=== PATIENT | male | born 1935 | race Caucasian/White ===

== ENCOUNTER 2018-08-11 15:01 | Inpatient (IN) | payer MEDICARE ==
[~2018-08-11] VITALS: Ht 177.8 cm; Wt 76.5 kg
[2018-08-11] VITALS (8 sets, daily range): BP systolic 124–170; BP diastolic 54–80
[2018-08-11] MEDS ORDERED: ONDANSETRON PF 4 MG/2 ML VIAL. IV PRN (15:45)
[2018-08-11] MEDS ORDERED: ACETAMINOPHEN 325 MG TABLET PO PRN (15:45)
[2018-08-11 17:11] LABS: BASO # 0.1 x10^3/uL (0.0-0.2); BASO % 2 % (0-3); EOS # 0.6 x10^3/uL (0.0-0.7); EOS % 9 % (0-3); HEMATOCRIT 35.8 % (39.0-53.0); HEMOGLOBIN 12.1 g/dL (13.0-17.5); LYMPH # 1.2 x10^3/uL (1.0-4.8); LYMPH % 19 % (24-48); MEAN CORPUSCULAR HEMOGLOBIN 28 pg (25-35); MEAN CORPUSCULAR HGB CONC 34 g/dL (31-37); MEAN CORPUSCULAR VOLUME 82 fL (79-100); MONO # 0.7 x10^3/uL (0.0-1.1); MONO % 11 % (0-9); NEUT # 3.8 x10^3uL (1.8-7.7); NEUT % 59 % (31-73); PLATELET COUNT 195 x10^3/uL (140-400); RED BLOOD COUNT 4.37 x10^6/uL (4.30-5.70); RED CELL DISTRIBUTION WIDTH 24.5 % (11.5-14.5); WHITE BLOOD COUNT 6.4 x10^3/uL (4.0-11.0)
[2018-08-11] MEDS: IV NORMAL SALINE 1,000ML 1,000 ML IV SCH (17:18)
[2018-08-11 17:21] LABS: ALBUMIN 3.7 g/dL (3.4-5.0); CALCIUM 8.7 mg/dL (8.5-10.1); CREATININE 1.4 mg/dL (0.7-1.3); GFR 48.6; MAGNESIUM 1.5 mg/dL (1.8-2.4); TOTAL BILIRUBIN 0.4 mg/dL (0.2-1.0); TOTAL PROTEIN 7.3 g/dL (6.4-8.2)
--- NOTE | 2018-08-11 17:33 | EKG ---
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
[2018-08-11] MEDS ORDERED: PANT40TA5 PO (17:44)
[2018-08-11] MEDS ORDERED: POTA20TA82 PO (17:44)
[2018-08-11] MEDS ORDERED: ATORVASTATIN CA80 MG PO (17:44)
[2018-08-11] MEDS ORDERED: METF10007 PO (17:44)
[2018-08-11] MEDS ORDERED: FURO20TA3 PO (17:44)
[2018-08-11] MEDS ORDERED: AMLO5TAB7 PO (17:44)
[2018-08-11] MEDS ORDERED: CARV6.25 PO (17:44)
[2018-08-11] MEDS ORDERED: ERGO500027 PO (17:44)
[2018-08-11] MEDS ORDERED: ASPI-630 PO (17:44)
[2018-08-11] MEDS ORDERED: CILO100T PO (17:44)
[2018-08-11] MEDS ORDERED: FERR325T14 PO (17:44)
[2018-08-11 17:48] LABS: HYPOCHROMIA PRESENT; PLT ESTIMATE ADEQUATE (ADEQUATE)
[2018-08-11 17:49] LABS: ACANTHOCYTES FEW; ANISOCYTOSIS PRESENT; BURR CELLS PRESENT; OVALOCYTES OCC; POIKILOCYTOSIS SLIGHT
--- NOTE | 2018-08-11 19:00 | NUR ---
The patient, ALBERTO MELÉNDEZ, 83 y/o, M admitted by ISABELLA ALCALA MD, was given written information regarding hospital policies, unit procedures and contact persons. Valuables were checked and left in room with pt. Reviewed plan of care with pt and pt's son. Pt agreeable with plan of care. SCDs per protocol. Pt resting comfortably in bed at this time.
[2018-08-11] MEDS ORDERED: MAGNESIUM SULFATE 2GM 50 ML IV ONE (19:15)
[2018-08-11] MEDS: MAGNESIUM SULFATE 1GM 100 ML IV SCH ×2 (20:31→21:23)
[2018-08-11] MEDS ORDERED: amLODIPine BESYLATE 5 MG TABLET PO SCH (21:00)
[2018-08-11] MEDS ORDERED: ATORVASTATIN CALCIUM 20 MG TABLET PO SCH (21:00)
[2018-08-11] MEDS ORDERED: MAGNESIUM OXIDE 400 MG TABLET PO SCH (21:00)
[2018-08-11] MEDS ORDERED: metFORMIN 500 MG TABLET PO SCH (21:00)
[2018-08-11] MEDS: CILOSTAZOL 50 MG TABLET. PO SCH (21:09)
[2018-08-11 22:35] LABS: BACTERIA,URINE 0 /HPF (0-FEW); BILIRUBIN,URINE NEG (NEG); CLARITY,URINE CLEAR; COLOR,URINE YELLOW; GLUCOSE,URINE NEG (NEG); NITRITE,URINE NEG (NEG); RBC,URINE 0 /HPF (0-2); UROBILINOGEN,URINE 0.2 mg/dL (0.2 mg/dL); WBC,URINE RARE /HPF (0-4)
[2018-08-12] VITALS (14 sets, daily range): BP systolic 121–173; BP diastolic 50–86
[2018-08-12] MEDS: IV NORMAL SALINE 1,000ML 1,000 ML IV SCH (03:18)
[2018-08-12 06:25] LABS: BASO # 0.1 x10^3/uL (0.0-0.2); BASO % 1 % (0-3); EOS # 0.5 x10^3/uL (0.0-0.7); EOS % 6 % (0-3); HEMATOCRIT 35.5 % (39.0-53.0); HEMOGLOBIN 11.8 g/dL (13.0-17.5); LYMPH # 1.2 x10^3/uL (1.0-4.8); LYMPH % 15 % (24-48); MEAN CORPUSCULAR HEMOGLOBIN 27 pg (25-35); MEAN CORPUSCULAR HGB CONC 33 g/dL (31-37); MEAN CORPUSCULAR VOLUME 82 fL (79-100); MONO # 0.7 x10^3/uL (0.0-1.1); MONO % 9 % (0-9); NEUT # 5.4 x10^3uL (1.8-7.7); NEUT % 68 % (31-73); PLATELET COUNT 203 x10^3/uL (140-400); RED CELL DISTRIBUTION WIDTH 24.8 % (11.5-14.5)
[2018-08-12 06:31] LABS: CALCIUM 8.3 mg/dL (8.5-10.1); CREATININE 1.3 mg/dL (0.7-1.3); POTASSIUM 3.4 mmol/L (3.5-5.1)
[2018-08-12] MEDS ORDERED: PANTOPRAZOLE 40 MG TABLET. PO SCH (07:30)
[2018-08-12] MEDS ORDERED: ELECTROLYTE (NON-ICU) PROTOCOL MC PRN (07:45)
[2018-08-12] MEDS ORDERED: CARVEDILOL 6.25 MG TABLET PO SCH (08:00)
[2018-08-12] MEDS ORDERED: ASPIRIN 81 MG TAB.CHEW PO SCH (08:00)
[2018-08-12] MEDS ORDERED: metFORMIN 500 MG TABLET PO SCH (08:00)
[2018-08-12] MEDS ORDERED: FERROUS SULFATE 325 MG TABLET. PO SCH (09:00)
[2018-08-12] MEDS ORDERED: MAGNESIUM CHLORIDE ER 64 MG TABLET.ER PO SCH (09:00)
[2018-08-12] MEDS ORDERED: POTASSIUM CHLORIDE 20 MEQ TABLET.ER. PO SCH (09:00)
[2018-08-12] MEDS ORDERED: FUROSEMIDE 20 MG TABLET PO SCH (09:00)
--- NOTE | 2018-08-12 09:07 | PDOC2 ---
CONSULT Date of Admission DATE: 08/12/18 TIME: 09:02 Reason for Consult: cp History of Present Illness Mr Shaw is an 83 year old male who normally follows with Dr Hassan for a history of coronary artery disease s/p CABG x5, CHF and Peripheral arterial disease. He was at follow up with PCP for lab work and was noted to have an irregular heart rhythm. EKG done in office apparently revealed paroxysmal atrial tachycardia so he was advised to come to hospital for admission and evaluation. He denies any symptoms of chest discomfort, dyspnea, palpitations, lightheadedness or syncope. He reports claudication with walking about 150 yards which resolves with 2-3 minutes of rest. He denies any congestive symptoms including orthopnea or PND. He does report swelling in his right lower extremity more than left that is chronic since his vascular surgery. He reports echocardiogram and stress testing within the last 1 year at . Cardiovascular: CAD, HTN, hyperipidemia, Other (PAD s/p surgical intervention ( prob fem pop bypass by history) right leg) Pulmonary: Pneumonia GI: GERD Heme/Onc: Iron deficiency Anemia Renal/: Benign prostatic enlarg. Endocrine: Diabetes Past Surgical History: CABG, Cataract Removal, Other (right toe amputation x 2 , vascular surgery (prob fem-pop) right lower extremity) Family History non contributory due to age Social History non smoker, no significant ETOH, no illicit drugs Current Medications Current Medications Sodium Chloride 1,000 ml @ 100 mls/hr Q10H IV Last administered on 08/12/18at 03:18; Start 08/11/18 at 15:43 Acetaminophen (Tylenol) 650 mg PRN Q6HRS PRN PO Headaches, Temp > 101.5F; Start 08/11/18 at 15:45 Ondansetron HCl (Zofran) 4 mg PRN Q8HRS PRN IV NAUSEA/VOMITING; Start 08/11/18 at 15:45 Ferrous Sulfate (Feosol) 325 mg DAILY PO ; Start 08/12/18 at 09:00 Furosemide (Lasix) 20 mg DAILY PO ; Start 08/12/18 at 09:00 Amlodipine Besylate (Norvasc) 5 mg QHS PO Last administered on 08/11/18at 21:09 ; Start 08/11/18 at 21:00 Aspirin (Children'S Aspirin) 81 mg DAILYWBKFT PO Last administered on at 07:54; Start 08/12/18 at 08:00 Atorvastatin Calcium (Lipitor) 80 mg QHS PO Last administered on 08/11/18at 21: 08; Start 08/11/18 at 21:00 Carvedilol (Coreg) 6.25 mg BIDWMEALS PO Last administered on 08/12/18at 07:54; Start 08/12/18 at 08:00 Cilostazol (Pletal) 100 mg BID PO Last administered on 08/11/18at 21:09; Start 08/11/18 at 21:00 Vitamin D (Vitamin D3) 50,000 unit WEEKLY PO ; Start 08/18/18 at 09:00 Metformin HCl (Glucophage) 1,000 mg BIDWMEALS PO ; Start 08/12/18 at 08:00; Stop 08/12/18 at 08:00; Status DC Pantoprazole Sodium (Protonix) 40 mg DAILYAC PO Last administered on 08/12/18at 07:54; Start 08/12/18 at 07:30 Potassium Chloride (Klor-Con) 20 meq QODAY PO ; Start 08/12/18 at 09:00 Magnesium Oxide (Magnesium Oxide) 400 mg BID PO ; Start 08/11/18 at 21:00; Stop 08/11/18 at 21:00; Status DC Magnesium Sulfate 50 ml @ 25 mls/hr 1X ONCE IV ; Start 08/11/18 at 19:15; Stop 08/11/18 at 19:17; Status DC Magnesium Sulfate 100 ml @ 100 mls/hr Q1HR IV Last administered on 08/11/18at 21:23; Start 08/11/18 at 20:00; Stop 08/11/18 at 21:59; Status DC Metformin HCl (Glucophage) 1,000 mg QHS PO Last administered on 08/11/18at 21:08 ; Start 08/11/18 at 21:00 Magnesium Chloride (Mag Delay) 64 mg DAILY PO ; Start 08/12/18 at 09:00 Info (Non-Icu Electrolyte Protocol) 1 ea CONT PRN PRN MC PER PROTOCOL; Start at 07:45 Active Scripts Active Reported Potassium Chloride 20 Meq Tablet.er 20 Meq PO QODAY Pantoprazole Sodium 40 Mg Tablet.dr 0.5 Tab PO DAILY Metformin Hcl 1,000 Mg Tablet 1 Tab PO QHS Coreg (Carvedilol) 6.25 Mg Tablet 1 Tab PO BID Furosemide 20 Mg Tablet 1 Tab PO DAILY Cilostazol 100 Mg Tablet 1 Tab PO BID Vitamin D2 (Ergocalciferol (Vitamin D2)) 50,000 Unit Capsule 1 Cap PO QMTH Atorvastatin Calcium 80 Mg Tablet 1 Tab PO DAILY Ferrous Sulfate 325 Mg Tablet 1 Tab PO DAILY Amlodipine Besylate 5 Mg Tablet 1 Tab PO HS Aspirin 81 Mg Tab.chew 81 Mg PO DAILY Allergies: Coded Allergies: Sulfa (Sulfonamide Antibiotics) (Verified Allergy, Unknown, 08/11/18) According to pt neomycin (Verified Allergy, Unknown, 08/11/18) According to pt Review of System as per HPI or negative General: Alert, Oriented X3, Cooperative, No acute distress HEENT: Atraumatic, EOMI, Mucous membr. moist/pink, Other (Right carotid bruit) Lungs: Clear to auscultation, Normal air movement Heart: Regular rate, Normal S1, Normal S2, Other (no gallops, clicks or rubs) Extremities: No cyanosis, Other (1+ RLE edema, trace LLE edema, palpable pulses ) Skin: No significant lesion Neuro: Normal speech, Strength at 5/5 X4 ext Psych/Mental Status: Mental status NL, Mood NL VITALS Vital Signs Date Time Temp Pulse Resp B/P (MAP) Pulse Ox O2 Delivery O2 Flow Rate FiO2 08/12/18 08:18 Room Air 08/12/18 07:54 91 155/71 08/12/18 05:45 20 08/12/18 05:01 97.4 93 Labs Laboratory Tests Test 08/11/18 16:15 08/11/18 17:02 08/11/18 19:39 08/11/18 21:13 Nasal Screen MRSA (PCR) Negative (Negative) White Blood Count 6.4 x10^3/uL (4.0-11.0) Red Blood Count 4.37 x10^6/uL (4.30-5.70) Hemoglobin 12.1 g/dL (13.0-17.5) Hematocrit 35.8 % (39.0-53.0) Mean Corpuscular Volume 82 fL (79-100) Mean Corpuscular Hemoglobin 28 pg (25-35) Mean Corpuscular Hemoglobin Concent 34 g/dL (31-37) Red Cell Distribution Width 24.5 % (11.5-14.5) Platelet Count 195 x10^3/uL (140-400) Neutrophils (%) (Auto) 59 % (31-73) Lymphocytes (%) (Auto) 19 % (24-48) Monocytes (%) (Auto) 11 % (0-9) Eosinophils (%) (Auto) 9 % (0-3) Basophils (%) (Auto) 2 % (0-3) Neutrophils # (Auto) 3.8 x10^3uL (1.8-7.7) Lymphocytes # (Auto) 1.2 x10^3/uL (1.0-4.8) Monocytes # (Auto) 0.7 x10^3/uL (0.0-1.1) Eosinophils # (Auto) 0.6 x10^3/uL (0.0-0.7) Basophils # (Auto) 0.1 x10^3/uL (0.0-0.2) Platelet Estimate Adequate (ADEQUATE) Hypochromasia Present Poikilocytosis Slight Anisocytosis Present Ovalocytes Occ Cme Cells Present Crenated Cell Present Acanthocytes Few Sodium Level 140 mmol/L (136-145) Potassium Level 4.0 mmol/L (3.5-5.1) Chloride Level 103 mmol/L (98-107) Carbon Dioxide Level 29 mmol/L (21-32) Anion Gap 8 (6-14) Blood Urea Nitrogen 20 mg/dL (8-26) Creatinine 1.4 mg/dL (0.7-1.3) Estimated GFR (Cockcroft-Gault) 48.6 BUN/Creatinine Ratio 14 (6-20) Glucose Level 149 mg/dL (70-99) Calcium Level 8.7 mg/dL (8.5-10.1) Magnesium Level 1.5 mg/dL (1.8-2.4) Total Bilirubin 0.4 mg/dL (0.2-1.0) Aspartate Amino Transf (AST/SGOT) 17 U/L (15-37) Alanine Aminotransferase (ALT/SGPT) 22 U/L (16-63) Alkaline Phosphatase 63 U/L (46-116) Creatine Kinase 62 U/L (39-308) Troponin I Quantitative < 0.017 ng/mL (0-0.055) Total Protein 7.3 g/dL (6.4-8.2) Albumin 3.7 g/dL (3.4-5.0) Albumin/Globulin Ratio 1.0 (1.0-1.7) Glucose (Fingerstick) 147 mg/dL (70-99) Urine Collection Type Unknown Urine Color Yellow Urine Clarity Clear Urine pH 6.5 Urine Specific [place] 1.015 Urine Protein Trace (NEG-TRACE) Urine Glucose (UA) Neg mg/dL (NEG) Urine Ketones (Stick) Neg mg/dL (NEG) Urine Blood Trace (NEG) Urine Nitrite Neg (NEG) Urine Bilirubin Neg (NEG) Urine Urobilinogen Dipstick 0.2 mg/dL (0.2 mg/dL) Urine Leukocyte Esterase Neg (NEG) Urine RBC 0 /HPF (0-2) Urine WBC Rare /HPF (0-4) Urine Squamous Epithelial Cells None /LPF Urine Bacteria 0 /HPF (0-FEW) Test 08/11/18 21:50 08/12/18 05:34 Creatine Kinase 60 U/L (39-308) 50 U/L (39-308) Troponin I Quantitative < 0.017 ng/mL (0-0.055) < 0.017 ng/mL (0-0.055) White Blood Count 8.0 x10^3/uL (4.0-11.0) Red Blood Count 4.30 x10^6/uL (4.30-5.70) Hemoglobin 11.8 g/dL (13.0-17.5) Hematocrit 35.5 % (39.0-53.0) Mean Corpuscular Volume 82 fL (79-100) Mean Corpuscular Hemoglobin 27 pg (25-35) Mean Corpuscular Hemoglobin Concent 33 g/dL (31-37) Red Cell Distribution Width 24.8 % (11.5-14.5) Platelet Count 203 x10^3/uL (140-400) Neutrophils (%) (Auto) 68 % (31-73) Lymphocytes (%) (Auto) 15 % (24-48) Monocytes (%) (Auto) 9 % (0-9) Eosinophils (%) (Auto) 6 % (0-3) Basophils (%) (Auto) 1 % (0-3) Neutrophils # (Auto) 5.4 x10^3uL (1.8-7.7) Lymphocytes # (Auto) 1.2 x10^3/uL (1.0-4.8) Monocytes # (Auto) 0.7 x10^3/uL (0.0-1.1) Eosinophils # (Auto) 0.5 x10^3/uL (0.0-0.7) Basophils # (Auto) 0.1 x10^3/uL (0.0-0.2) Sodium Level 141 mmol/L (136-145) Potassium Level 3.4 mmol/L (3.5-5.1) Chloride Level 105 mmol/L (98-107) Carbon Dioxide Level 26 mmol/L (21-32) Anion Gap 10 (6-14) Blood Urea Nitrogen 15 mg/dL (8-26) Creatinine 1.3 mg/dL (0.7-1.3) Estimated GFR (Cockcroft-Gault) 53.0 Glucose Level 120 mg/dL (70-99) Calcium Level 8.3 mg/dL (8.5-10.1) Magnesium Level 1.6 mg/dL (1.8-2.4) Images EKG sinus rhythm, RBBB, 1degree av block, non specific st/t abn, PVC Assessment/Plan 1. paroxysmal atrial tachycardia - no significant arrhythmias since admission. Occasional premature ventricular contractions. Consider outpatient event monitoring for burden. 2. CAD CABG status - angina free. recent MPI with fixed defects and no reversibility. Continue medical mgmt and RF reduction. 3. presumed chronic systolic heart failure with reported EF 35% - well compensated, check echo for LV function and adjust medications accordingly. 4. hypertension - fair control on current therapy. increase coreg and re- evaluate outpatient. 5. hyperlipidemia - continue current therapy and check lipids. 6. hyponatremia/hypomagnesemia - replace and recheck. 7. claudication with known PAD s/p surgical intervention - outpatient follow up and continue pletal. 8. carotid bruits - check duplex. As he is clinically well compensated and without significant complaint, would be ok for discharge from CV perspective if no significant abnormalities on echo or continued telemetry and follow up outpatient. YUE NUÑEZ APRN Aug 12, 2018 09:06
[2018-08-12] MEDS: CILOSTAZOL 50 MG TABLET. PO SCH (09:45)
--- NOTE | 2018-08-12 14:10 | PN ---
DATE: 08/12/2018 SUBJECTIVE: The patient is an 83-year-old gentleman who came in with runs of argelia bhatia in the office. The patient was admitted to the hospital for further evaluation. Cardiac enzymes negative, but his potassium and magnesium levels were on the low side. Consulted Cardiology, there being monitored accordingly. We will await further consultation. Also having some loose stools for some time now, may be better than a couple of weeks. Stool cultures pending. OBJECTIVE: VITAL SIGNS: Blood pressure 155/70, respiration 18, pulse 96, afebrile. GENERAL: The patient is alert and oriented. LUNGS: Clear. CARDIOVASCULAR: Regular sinus rhythm. Numerous dropped beats and a possible S3. PLAN: The patient will otherwise continued to be monitored carefully, make further evaluation on him as indicated. We will make further assessment per those results. ISABELLA ALCALA MD DR: JUSTIN/yasmany JOB#: [id number] / [id number]
--- NOTE | 2018-08-12 16:11 | CARD ---
MR#: [id number] Date of Study: 08/12/2018 Ordering Physician: YUE NUÑEZ, Referring Physician: ISABELLA ALCALA, Tech: MONET Botello APPROVED REPORT EXAM: Two-dimensional and M-mode echocardiogram with Doppler and color Doppler. Other Information Quality : AverageHR: 79bpm INDICATION LV Function:Systolic 2D DIMENSIONS RVDd3.5 (2.9-3.5cm)Left Atrium(2D)3.9 (1.6-4.0cm) IVSd1.2 (0.7-1.1cm)Aortic Root(2D)3.3 (2.0-3.7cm) LVDd4.7 (3.9-5.9cm)LVOT Diameter2.2 (1.8-2.4cm) PWd1.2 (0.7-1.1cm)LVDs3.8 (2.5-4.0cm) FS (%) 20.4 %SV42.9 ml Aortic Valve AoV Peak Niall.203.4cm/sAoV VTI39.5cm AO Peak GR.16.5mmHgLVOT Peak Niall.147.7cm/s LVOT VTI 27.90cmAO Mean GR.10mmHg CHAI (VMAX)2.66vl4VJO (VTI)2.57cm2 Mitral Valve MV E Jsdmogax830.8cm/sMV DECEL ZZTL863sd MV A Vldnzufu239.3cm/sE/A Ratio0.7 Pulmonary Valve PV Peak Lynvxmra398.4cm/sPV Peak Grad.10mmHg Tricuspid Valve TR P. Avqfeiwj608za/sRAP NAGVUHJA5xmNz TR Peak Gr.1vnNhDNNF55msHq Pulmonary Vein S1 Zzfemmsq77.2cm/sD2 Wcohspcg44.2cm/s LEFT VENTRICLE The left ventricle is normal size. There is mild concentric left ventricular hypertrophy. The left ve ntricle systolic function is normal. The Ejection Fraction is 50-55%. There is normal LV segmental wa ll motion. Transmitral Doppler flow pattern is Grade I-abnormal relaxation pattern. RIGHT VENTRICLE The right ventricle is normal size. The right ventricular systolic function is normal. ATRIA The left atrium size is normal. The right atrium size is normal. The interatrial septum is intact wit h no evidence for an atrial septal defect or patent foramen ovale as noted on 2-D or Doppler imaging. AORTIC VALVE The aortic valve is mildly thickened but opens well. Doppler and Color Flow revealed no significant a ortic regurgitation. There is no significant aortic valvular stenosis. There is no aortic valvular ve getation. MITRAL VALVE The mitral valve is mildly thickened. There is no evidence of mitral valve prolapse. There is no mitr al valve stenosis. Doppler and Color-flow revealed trace mitral regurgitation. TRICUSPID VALVE The tricuspid valve leaflets are thickened , but open well. Doppler and Color Flow revealed trace tri cuspid regurgitation. There is no tricuspid valve prolapse or vegetation. There is no tricuspid valve stenosis. PULMONIC VALVE The pulmonic valve is not well visualized. Doppler and Color Flow revealed no pulmonic valvular regur gitation. There is no pulmonic valvular stenosis. GREAT VESSELS The aortic root is normal in size. The IVC is dilated and collapses >50% with inspiration. PERICARDIAL EFFUSION There is no pleural effusion. There is no evidence of significant pericardial effusion. Critical Notification Critical Value: No <Conclusion> The left ventricle systolic function is normal. The Ejection Fraction is 50-55%. There is normal LV segmental wall motion. Transmitral Doppler flow pattern is Grade I-abnormal relaxation pattern. Trace mitral regurgitation. Trace tricuspid regurgitation. There is no evidence of significant pericardial effusion. Signed by : Jacinto Noel, Electronically Approved : 08/12/2018 16:10:07
[2018-08-12] MEDS ORDERED: CARVEDILOL 12.5 MG TABLET PO SCH (17:00)
[2018-08-12] MEDS ORDERED: MAGN64TA6 PO (17:05)
[2018-08-12] MEDS ORDERED: CARV6.25 PO (17:05)
[2018-08-18] MEDS ORDERED: CHOLECALCIFEROL (VITAMIN D3) 50,000 UNIT CAPSULE PO SCH (09:00)
--- NOTE | 2018-08-19 21:18 | DS ---
DATE OF DISCHARGE: 08/12/2018 HOSPITAL COURSE: An 83-year-old gentleman came in with chest pain as well as bigeminy, trigeminy. The patient's cardiac enzymes were negative, but his potassium and magnesium levels were low. The patient was consulted with Cardiology and ____ did an echocardiogram on him and his ejection fraction is between 50% and 60%, otherwise his cardiac enzymes were negative, slightly anemic at 11.8 and 35. Otherwise, the patient made good progress but his magnesium levels were elevated and PVCs deteriorated and he will be ready for discharge here soon. Nuclear evaluation on him as indicated. See MRAD. Decreased activity. IMPRESSION: Ventricular arrhythmia, hypomagnesemia, hypokalemia, anemia of unknown etiology. PLAN: As above. ISABELLA ALCALA MD DR: JUSTIN/yasmany JOB#: [id number] / [id number]
== END 2018-08-12 17:41 | disposition home or self-care (01) | DRG 309 ==
LOC: ICU 15:22
PROVIDERS: ADMIT Family Medicine; ATTEND Family Medicine
DX: I47.1 Supraventricular tachycardia (principal); E87.1 Hypo-osmolality and hyponatremia; I50.22 Chronic systolic (congestive) heart failure; E11.51 Type 2 diabetes mellitus with diabetic peripheral angiopathy without gangrene; Z66 Do not resuscitate; E78.5 Hyperlipidemia, unspecified; E83.42 Hypomagnesemia; I11.0 Hypertensive heart disease with heart failure; I25.10 Atherosclerotic heart disease of native coronary artery without angina pectoris; K21.9 Gastro-esophageal reflux disease without esophagitis; R09.89 Other specified symptoms and signs involving the circulatory and respiratory systems; N40.0 Benign prostatic hyperplasia without lower urinary tract symptoms; I49.3 Ventricular premature depolarization; Z87.01 Personal history of pneumonia (recurrent); Z95.1 Presence of aortocoronary bypass graft; Z98.49 Cataract extraction status, unspecified eye; Z89.421 Acquired absence of other right toe(s); Z79.82 Long term (current) use of aspirin; Z79.84 Long term (current) use of oral hypoglycemic drugs; Z88.2 Allergy status to sulfonamides; Z88.8 Allergy status to other drugs, medicaments and biological substances; E87.6 Hypokalemia
CPT/HCPCS: 36415; 80048; 80053; 81001; 82550; 82947; 83735; 84484; 85025; 87086; 87641; 93005; 93306; J3475; J7030

== ENCOUNTER → 2018-08-13 | Outpatient (CLI) | payer MEDICARE ==
[2018-08-12 16:00] VITALS: BP 172/86
[~2018-08-13] MED LIST: AMLO5TAB7 PO; ASPI-630 PO; ATORVASTATIN CA80 MG PO; CARV6.25 PO; CILO100T PO; ERGO500027 PO; FERR325T14 PO; FURO20TA3 PO; MAGN64TA6 PO; METF10007 PO; PANT40TA5 PO; POTA20TA82 PO
--- NOTE | 2018-08-13 09:04 | RAD ---
Examination: CT of the abdomen pelvis without contrast HISTORY: History of abnormal bowel sounds, diarrhea COMPARISON: None available TECHNIQUE: Axial CT images of the abdomen pelvis were performed without contrast. Coronal and sagittal reformats are performed Exposure: One or more of the following individualized dose reduction techniques were utilized for this examination: 1. Automated exposure control 2. Adjustment of the mA and/or kV according to patient size 3. Use of iterative reconstruction technique FINDINGS: Emphysematous changes identified in the bibasilar lungs. No evidence of free air identified in the abdomen. The evaluation of the solid organs is limited due to lack of IV contrast. Evaluation of bowel is limited due to lack of oral contrast.The visualized noncontrasted liver, spleen, adrenals grossly appears unremarkable. The gallbladder is mildly distended. The stomach is mildly distended. The visualized pancreas grossly appears unremarkable The small bowel is nondilated. The appendix is normal. Feces and gas noted in the colon. Mild distended urinary bladder. Mild thickened appearance of the urinary bladder wall. No evidence of intrarenal collecting system calculi or hydronephrosis. Moderate aortic atherosclerosis. Moderate to severe degenerative changes lumbar spine. IMPRESSION: 1. Mild thickened appearance of the wall of the urinary bladder, nonspecific. Underlying mucosal pathology is not completely excluded. Otherwise no acute intra-abdominal findings. 2. Mild distended gallbladder. Electronically signed by: Harpreet Amin MD (08/13/2018 9:00 AM) [id number]
== END | disposition home or self-care (01) ==
LOC: CT 08:21
PROVIDERS: ATTEND Family Medicine
DX: K82.8 Other specified diseases of gallbladder (principal); I70.0 Atherosclerosis of aorta; N32.89 Other specified disorders of bladder; I11.0 Hypertensive heart disease with heart failure; I50.22 Chronic systolic (congestive) heart failure; E11.9 Type 2 diabetes mellitus without complications; E78.5 Hyperlipidemia, unspecified; K21.9 Gastro-esophageal reflux disease without esophagitis; I25.10 Atherosclerotic heart disease of native coronary artery without angina pectoris; Z95.1 Presence of aortocoronary bypass graft; Z89.421 Acquired absence of other right toe(s); Z88.2 Allergy status to sulfonamides; Z88.8 Allergy status to other drugs, medicaments and biological substances
CPT/HCPCS: 74176

== ENCOUNTER → 2018-08-25 | Outpatient (CLI) | payer MEDICARE ==
[2018-08-12 16:00] VITALS: BP 172/86
--- NOTE | 2018-08-25 12:32 | RAD ---
Right upper quadrant abdominal ultrasound History: Distended gallbladder on recent CT. Comparison: CT abdomen pelvis August 13, 2018. Procedure: Transabdominal ultrasound images are obtained. Findings: Visualized pancreas is unremarkable. Liver is mildly increased in echogenicity. No focal hepatic masses are identified. Right lobe of the liver measures 17.6 cm. Gallbladder has an unremarkable appearance. Common bile duct measures normally at 6 mm in diameter. Right kidney measures 10.6 cm in length. Right kidney is without evidence of obstruction or stone Visualized portions of the IVC have normal caliber. Impression: 1. Echogenic liver, compatible with fatty liver disease. 2. No evidence gallbladder pathology. Gallbladder Electronically signed by: Aba Urrutia MD (08/25/2018 12:29 PM) [facility]
== END | disposition home or self-care (01) ==
LOC: US 08:44
PROVIDERS: ATTEND Family Medicine
DX: K82.8 Other specified diseases of gallbladder (principal); I11.0 Hypertensive heart disease with heart failure; I50.22 Chronic systolic (congestive) heart failure; E78.5 Hyperlipidemia, unspecified; E87.6 Hypokalemia; I25.10 Atherosclerotic heart disease of native coronary artery without angina pectoris; K21.9 Gastro-esophageal reflux disease without esophagitis; E11.9 Type 2 diabetes mellitus without complications; Z89.421 Acquired absence of other right toe(s); Z88.2 Allergy status to sulfonamides; Z88.8 Allergy status to other drugs, medicaments and biological substances
CPT/HCPCS: 76705

== ENCOUNTER 2020-01-21 12:26 | Inpatient (IN) | payer MEDICARE ==
[~2020-01-21] VITALS: Ht 177.8 cm; Wt 86.8 kg
[~2020-01-21 12:26] MED LIST changes: +AMLO5TAB10 PO; -AMLO5TAB7 PO; +POTA20TA4 PO; -POTA20TA82 PO
[2020-01-21 13:09] VITALS: BP 183/89
[2020-01-21 13:33] LABS: BASO # 0.1 x10^3/uL (0.0-0.2); BASO % 1 % (0-3); EOS # 0.8 x10^3/uL (0.0-0.7); EOS % 11 % (0-3); HEMOGLOBIN 13.5 g/dL (13.0-17.5); LYMPH # 1.4 x10^3/uL (1.0-4.8); LYMPH % 20 % (24-48); MEAN CORPUSCULAR HEMOGLOBIN 32 pg (25-35); MEAN CORPUSCULAR HGB CONC 34 g/dL (31-37); MEAN CORPUSCULAR VOLUME 94 fL (79-100); MONO # 0.7 x10^3/uL (0.0-1.1); MONO % 10 % (0-9); NEUT # 4.1 x10^3uL (1.8-7.7); NEUT % 59 % (31-73); PLATELET COUNT 255 x10^3/uL (140-400); RED BLOOD COUNT 4.24 x10^6/uL (4.30-5.70); RED CELL DISTRIBUTION WIDTH 15.7 % (11.5-14.5)
[2020-01-21] MEDS ORDERED: DICL100G24 TP (13:47)
[2020-01-21] MEDS ORDERED: FURO40TA4 PO (13:47)
[2020-01-21] MEDS ORDERED: APIX5TAB3 PO (13:47)
[2020-01-21] MEDS ORDERED: GLIP5TAB10 PO (13:47)
[2020-01-21] MEDS ORDERED: TRIA15CR50 TP (13:47)
[2020-01-21] MEDS ORDERED: LIPA1CAP PO (13:47)
[2020-01-21 13:53] LABS: ALBUMIN 3.9 g/dL (3.4-5.0); CALCIUM 8.5 mg/dL (8.5-10.1); CREATININE 1.5 mg/dL (0.7-1.3); GFR 44.8; POTASSIUM 4.5 mmol/L (3.5-5.1); TOTAL BILIRUBIN 0.6 mg/dL (0.2-1.0); TOTAL PROTEIN 7.9 g/dL (6.4-8.2)
[2020-01-21 14:58] VITALS: BP 186/76
--- NOTE | 2020-01-21 17:01 | RAD ---
EXAM: CHEST PA LATERAL INDICATION: Respiratory distress. TECHNIQUE: PA and lateral views COMPARISON: Abdomen CT of 08/13/2018 FINDINGS: The heart size is normal. Post-CABG surgical changes are evident.. The great vessels appear unremarkable. There is no hilar or mediastinal mass. The lungs are clear. There is no pleural effusion or pneumothorax. There are no significant osseous abnormalities. IMPRESSION: No active cardiopulmonary disease. Electronically signed by: Dex Duckworth MD (01/21/2020 4:59 PM) [facility]
[2020-01-21] MEDS: CARVEDILOL 6.25 MG TABLET PO SCH ×2 (18:25→21:00)
[2020-01-21 18:37] VITALS: BP 186/72
[2020-01-21 19:53] VITALS: BP 151/70
[2020-01-21] MEDS: APIXABAN 5 MG TABLET. PO SCH (20:58)
[2020-01-21] MEDS: amLODIPine BESYLATE 5 MG TABLET PO SCH (20:59)
[2020-01-21] MEDS: glipiZIDE 5 MG TABLET PO SCH (20:59)
[2020-01-21] MEDS ORDERED: CILOSTAZOL PO SCH (21:00)
[2020-01-21] MEDS ORDERED: PROTEASE PO SCH (21:00)
[2020-01-21] MEDS ORDERED: LIPASE PO SCH (21:00)
[2020-01-21] MEDS ORDERED: AMYLASE PO SCH (21:00)
[2020-01-21] MEDS ORDERED: CARVEDILOL 6.25 MG TABLET PO SCH (21:00)
[2020-01-21] MEDS: CILOSTAZOL 50 MG TABLET. PO SCH (21:06)
[2020-01-21 23:12] VITALS: BP 112/63
--- NOTE | 2020-01-22 02:05 | EKG ---
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
[2020-01-22 06:31] VITALS: BP 108/63
[2020-01-22] MEDS: FERROUS SULFATE 325 MG TABLET. PO SCH (08:31)
[2020-01-22] MEDS: ASPIRIN 81 MG TAB.CHEW PO SCH (08:31)
[2020-01-22] MEDS: APIXABAN 5 MG TABLET. PO SCH ×2 (08:31→21:08)
[2020-01-22] MEDS: FUROSEMIDE 40 MG TABLET PO SCH (08:31)
[2020-01-22] MEDS: glipiZIDE 5 MG TABLET PO SCH ×2 (08:31→21:11)
[2020-01-22] MEDS: CILOSTAZOL 50 MG TABLET. PO SCH ×2 (08:33→21:07)
[2020-01-22] MEDS ORDERED: ATORVASTATIN CALCIUM 20 MG TABLET PO SCH (09:00)
[2020-01-22] MEDS ORDERED: PANTOPRAZOLE 40 MG TABLET. PO SCH (09:00)
[2020-01-22 10:46] VITALS: BP 128/63
[2020-01-22] MEDS: PANTOPRAZOLE 40 MG TABLET. PO SCH (12:11)
[2020-01-22] MEDS ORDERED: DEXTROSE 50% 25 GM / 50ML DISP.SYRIN. IV PRN (12:30)
[2020-01-22] MEDS: methylPREDNISolone SOD SUCC PF 40 MG/ML VIAL. IV SCH ×2 (13:49→21:45)
[2020-01-22] MEDS: IPRATRPIUM/ALBUTEROL 0.5/2.5MG 3 ML NEBU. NEB SCH ×3 (14:30→21:36)
[2020-01-22 15:00] VITALS: BP 149/68
--- NOTE | 2020-01-22 16:18 | RAD ---
CT study chest without contrast Clinical indications: Shortness of breath. TECHNIQUE: Noncontrast helical CT scanning of the chest was performed. Without contrast, the sensitivity to detect organ pathology is decreased. PQRS compliance Statement One or more of the following individualized dose reduction techniques were utilized for this study: 1. Automated exposure control 2. Adjustment of the mA and/or kV according to patient size 3. Use of iterative reconstruction technique COMPARISON: No previous chest CT available. FINDINGS: Small mediastinal lymph nodes are seen. Otherwise no bulky mediastinal or hilar or axillary lymphadenopathy is evident. No focal aneurysmal dilatation of the thoracic aorta is seen. Calcification of coronary arteries is seen. Heart size is normal. No pericardial effusion is seen. Small hiatal hernia is evident. Bilateral centrilobular emphysema is seen. Mild ill-defined peripheral subpleural groundglass lung infiltrate is seen within the posterior right lower lobe. No lung consolidation with air bronchograms is seen. There is a 9 mm right upper lobe irregular nodular infiltrate. This has a groundglass appearance. No pleural effusion or pneumothorax is seen. The proximal bronchial tree is patent. A small hiatal hernia is seen. No adrenal mass is evident. 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 No lytic process is evident. IMPRESSION: 9 mm groundglass nodular infiltrate in the right upper lobe. Recommend follow-up chest CT in 6 months as per Fleischner guidelines. Bilateral centrilobular emphysema is seen. Mild ill-defined peripheral subpleural groundglass lung infiltrate is seen within the posterior right lower lobe. This could represent a small focus of pneumonitis Calcified atheromatous disease of the coronary arteries. Small hiatal hernia. Electronically signed by: Daniel Wilson MD (01/22/2020 4:15 PM) [facility]
[2020-01-22] MEDS: INSULIN LISPRO 300 UNITS/3 ML VIAL. SQ SCH (17:10)
--- NOTE | 2020-01-22 18:23 | RAD ---
EXAM: Right lower extremity venous Doppler. HISTORY: Right lower extremity pain/swelling. COMPARISON: None. FINDINGS: Grayscale and Doppler analysis of the right lower extremity deep venous system was performed with graded compression and augmentation. The common femoral, greater saphenous, superficial femoral, popliteal and calf veins were assessed. There is no evidence of deep venous thrombosis. IMPRESSION: 1. No evidence of deep venous thrombosis. Electronically signed by: Etta Ann MD (01/22/2020 6:20 PM) [id number]
[2020-01-22 18:42] VITALS: BP 107/61
[2020-01-22] MEDS: AZITHROMYCIN 250 MG TABLET. PO SCH (19:21)
[2020-01-22] MEDS: ATORVASTATIN CALCIUM 20 MG TABLET PO SCH (21:08)
[2020-01-22] MEDS: LACTOBACILLUS RHAMNOSUS GG 1 CAPSULE. PO SCH (21:08)
[2020-01-22] MEDS: CARVEDILOL 12.5 MG TABLET PO SCH (21:10)
[2020-01-22] MEDS: amLODIPine BESYLATE 5 MG TABLET PO SCH (21:11)
--- NOTE | 2020-01-22 21:55 | PN ---
DATE: SUBJECTIVE: An 84-year-old male in with acute exacerbation of chronic obstructive pulmonary disease, acute respiratory distress. The patient is resting fairly comfortably. There is a little bit of delay and some of the procedure is done, but finally we got them done and his CT scan does show bilateral centrilobular emphysema and mild ill-defined peripheral subpleural ground glass lung infiltrate, possibly representing a focus of pneumonia. He is on IV antibiotic therapy for the cellulitis in his right lower leg. Dopplers have been done and they were negative. The patient is feeling better. OBJECTIVE: Blood pressure 149/68, respiratory rate 12, pulse 68, afebrile. He has been increasing his oxygen saturation at rest anyway, but we need to mobilize him to get his accurate reading. His blood pressure has also been elevated, but that has been coming down with the increase in his Coreg. IMPRESSION: Acute exacerbation of chronic obstructive pulmonary disease, centrilobular emphysema, acute respiratory distress as well as essential hypertension. Continue on IV antibiotic therapy. ISABELLA ALCALA MD DR: JUSTIN/yasmany JOB#: [id number] / [id number]
[2020-01-23 05:01] VITALS: BP 110/54
[2020-01-23] MEDS: IPRATRPIUM/ALBUTEROL 0.5/2.5MG 3 ML NEBU. NEB SCH ×4 (05:26→20:48)
[2020-01-23] MEDS: methylPREDNISolone SOD SUCC PF 40 MG/ML VIAL. IV SCH ×3 (05:42→21:00)
[2020-01-23] MEDS: AZITHROMYCIN 250 MG TABLET. PO SCH (08:33)
[2020-01-23] MEDS: APIXABAN 5 MG TABLET. PO SCH ×2 (08:33→20:56)
[2020-01-23] MEDS: PANTOPRAZOLE 40 MG TABLET. PO SCH (08:34)
[2020-01-23] MEDS: glipiZIDE 5 MG TABLET PO SCH ×2 (08:34→20:57)
[2020-01-23] MEDS: FERROUS SULFATE 325 MG TABLET. PO SCH (08:34)
[2020-01-23] MEDS: ASPIRIN 81 MG TAB.CHEW PO SCH (08:34)
[2020-01-23] MEDS: LACTOBACILLUS RHAMNOSUS GG 1 CAPSULE. PO SCH ×2 (08:34→20:56)
[2020-01-23] MEDS: CARVEDILOL 12.5 MG TABLET PO SCH ×2 (08:34→20:57)
[2020-01-23] MEDS: TRIAMCINOLONE ACETONIDE 0.5% TOPICAL CREAM 15GM TUBE. TP PRN (08:35)
[2020-01-23] MEDS: FUROSEMIDE 40 MG TABLET PO SCH (08:35)
[2020-01-23] MEDS: CILOSTAZOL 50 MG TABLET. PO SCH ×2 (08:35→20:56)
[2020-01-23] MEDS: INSULIN LISPRO 300 UNITS/3 ML VIAL. SQ SCH ×3 (08:41→17:13)
[2020-01-23] MEDS ORDERED: POTASSIUM CHLORIDE 20 MEQ TABLET.ER. PO SCH (09:00)
[2020-01-23 11:09] VITALS: BP 136/56
--- NOTE | 2020-01-23 12:18 | PDOC2 ---
CARDIAC CONSULT DATE OF CONSULT Date Of Consult DATE: 01/23/20 TIME: 12:08 REASON FOR CONSULT Reason for Consult SOB, history of CABG REFERRING PHYSICIAN Referring Physician Dr. Ferrell SOURCE Source: Chart review, Patient HPI History of Present Illness The patient is an 84-year-old male with a history of COPD, coronary artery bypass surgery,PVD and diabetes who was admitted for episodes of increasing shortness of breath. The patient has been treated with pulmonary medications as well as continuing of his baseline medications and is feeling significantly better. He denies chest pain, dizziness or lightheadedness. He denies a productive cough. He is resting reasonably comfortable in bed. His EKG shows a sinus rhythm with some T-wave inversion in leads V1 through V3 which are probably chronic. He does report a history of a heart attack prior to his bypass surgery. He is routinely followed by cardiology. PAST MEDICAL HISTORY Cardiovascular: CAD, CHF, HTN, ID, hyperipidemia, Other (PVD) Pulmonary: COPD Infectious disease: Other (osteomyelitis) Endocrine: Diabetes PAST SURGICAL HISTORY Past Surgical History: CABG, Other (Amputation of two toes.) FAMILY HISTORY Family History: Hypertension SOCIAL HISTORY Smoke: Quit ALCOHOL: social CURRENT MEDICATIONS Current Medications Current Medications Amlodipine Besylate (Norvasc) 5 mg HS PO Last administered on 01/22/20at 21:11; Start 01/21/20 at 21:00 Carvedilol (Coreg) 6.25 mg BID PO ; Start 01/21/20 at 21:00; Stop 01/21/20 at 18:14; Status DC Ferrous Sulfate (Feosol) 325 mg DAILY PO Last administered on 01/23/20at 08:34; Start 01/22/20 at 09:00 Pantoprazole Sodium (Protonix) 20 mg DAILY PO Last administered on 01/22/20at 08:32; Start 01/22/20 at 09:00; Stop 01/22/20 at 11:19; Status DC Potassium Chloride (Klor-Con) 20 meq QODAY PO Last administered on 01/23/20at 08:35; Start 01/23/20 at 09:00 Atorvastatin Calcium (Lipitor) 80 mg DAILY PO ; Start 01/22/20 at 09:00; Stop 01/22/20 at 09:02; Status DC Vitamin D (Vitamin D3) 50,000 unit QMTH PO ; Start 01/24/20 at 16:00 Carvedilol (Coreg) 25 mg BID PO Last administered on 01/21/20at 18:25; Start 01/21/20 at 18:15; Stop 01/22/20 at 08:27; Status DC Apixaban (Eliquis) 5 mg BID PO Last administered on 01/23/20 08:33; Start 01/21/20 at 21:00 Aspirin (Children'S Aspirin) 81 mg DAILY PO Last administered on 01/23/20 08: 34; Start 01/22/20 at 09:00 Furosemide (Lasix) 40 mg DAILY PO Last administered on 01/23/20 08:35; Start 01/22/20 at 09:00 Glipizide (Glucotrol) 5 mg BID PO Last administered on 01/23/20 08:34; Start 01/21/20 at 21:00 Triamcinolone Acetonide (Kenalog 0.5%) 1 kim PRN BID PRN TP ITCHING Last administered on 01/23/20 08:35; Start 01/21/20 at 18:15 Non-Formulary Medication (Cilostazol ) 1 tab BID PO ; Start 01/21/20 at 21:00; Stop 01/21/20 at 18:17; Status DC Non-Formulary Medication (Lipase/Protease/ Amylase (Creon Dr 3,000 Units Capsule)) 1 each TID PO ; Start 01/21/20 at 21:00; Stop 01/21/20 at 18:23; Status DC Cilostazol (Pletal) 100 mg BID PO Last administered on 01/23/20 08:35; Start 01/21/20 at 21:00 Amylase/Lipase/ Protease (Zenpep 5,000) 2 cap TIDWMEALS PO Last administered on 01/23/20 08:33; Start 01/22/20 at 08:00 Carvedilol (Coreg) 25 mg BID PO Last administered on 01/23/20 08:34; Start 01/22/20 at 21:00 Atorvastatin Calcium (Lipitor) 80 mg QHS PO Last administered on 01/22/20at 21:08; Start 01/22/20 at 21:00 Albuterol/ Ipratropium (Duoneb) 3 ml RTQID NEB Last administered on 01/23/20 09:43; Start 01/22/20 at 12:00 Methylprednisolone Sodium Succinate (SOLU-Medrol 40MG VIAL) 40 mg Q8HRS IV Last administered on 01/23/20at 05:42; Start 01/22/20 at 14:00 Pantoprazole Sodium (Protonix) 40 mg DAILYAC PO Last administered on 01/23/20 08:34; Start 01/22/20 at 11:30 Ceftriaxone Sodium 1 gm/ Sodium Chloride 50 ml @ 100 mls/hr Q24H IV Last administered on 01/22/20at 12:17; Start 01/22/20 at 12:00 Lactobacillus Rhamnosus (Culturelle) 1 cap BID PO Last administered on 01/23/20 08:34; Start 01/22/20 at 21:00 Insulin Human Lispro (HumaLOG) 0-7 UNITS TIDWMEALS SQ Last administered on 01/23/20 08:41; Start 01/22/20 at 17:00 Dextrose (Dextrose 50%-Water Syringe) 12.5 gm PRN Q15MIN PRN IV SEE COMMENTS; Start 01/22/20 at 12:30 Azithromycin (Zithromax) 250 mg DAILY PO Last administered on 01/23/20at 08:33; Start 01/22/20 at 19:30 Active Scripts Active Reported Creon 3,000 Units Capsule (Lipase/Protease/Amylase) 1 Each Capsule.dr 1 Each PO TID Triamcinolone Acetonide 15 Gm Cream..g. 1 Kim TP PRN BID PRN Glipizide 5 Mg Tablet 1 Tab PO BID Furosemide 40 Mg Tablet 1 Tab PO DAILY Diclofenac Sodium 100 Gm Gel..gram. 100 Gm TP PRN QID PRN Eliquis (Apixaban) 5 Mg Tablet 5 Mg PO BID Mag64 (Magnesium Chloride) 64 Mg Tablet.er 64 Mg PO Potassium Chloride (Potassium Chloride) 20 Meq Tablet.er 20 Meq PO QODAY Pantoprazole Sodium 40 Mg Tablet. 0.5 Tab PO DAILY Coreg (Carvedilol) 6.25 Mg Tablet 1 Tab PO BID Cilostazol 100 Mg Tablet 1 Tab PO BID Vitamin D2 (Ergocalciferol (Vitamin D2)) 50,000 Unit Capsule 1 Cap PO QMTH Atorvastatin Calcium 80 Mg Tablet 1 Tab PO DAILY Ferrous Sulfate 325 Mg Tablet 1 Tab PO DAILY Amlodipine Besylate 5 Mg Tablet 1 Tab PO HS Aspirin 81 Mg Tab.chew 81 Mg PO DAILY ALLERGIES Allergies: Coded Allergies: Sulfa (Sulfonamide Antibiotics) (Verified Allergy, Unknown, 08/11/18) According to pt neomycin (Verified Allergy, Unknown, 08/11/18) According to pt ROS General: YES: Fatigue Respiratory: YES: Shortness of breath, SOB with excertion PHYSICAL EXAM General: mild distress HEENT: Atraumatic Lungs: Other (decreased breath sounds) Heart: Regular rate Abdomen: Normal bowel sounds VITALS Vital Signs Vital Signs Date Time Temp Pulse Resp B/P (MAP) Pulse Ox O2 Delivery O2 Flow Rate FiO2 01/23/20 11:09 97.9 91 136/56 (82) 93 Room Air 01/23/20 05:01 20 LABS LABS Laboratory Tests Test 01/21/20 13:00 01/21/20 13:20 01/21/20 22:05 01/22/20 04:05 Magnesium Level 1.8 mg/dL (1.8-2.4) White Blood Count 7.0 x10^3/uL (4.0-11.0) Red Blood Count 4.24 x10^6/uL (4.30-5.70) Hemoglobin 13.5 g/dL (13.0-17.5) Hematocrit 40.0 % (39.0-53.0) Mean Corpuscular Volume 94 fL (79-100) Mean Corpuscular Hemoglobin 32 pg (25-35) Mean Corpuscular Hemoglobin Concent 34 g/dL (31-37) Red Cell Distribution Width 15.7 % (11.5-14.5) Platelet Count 255 x10^3/uL (140-400) Neutrophils (%) (Auto) 59 % (31-73) Lymphocytes (%) (Auto) 20 % (24-48) Monocytes (%) (Auto) 10 % (0-9) Eosinophils (%) (Auto) 11 % (0-3) Basophils (%) (Auto) 1 % (0-3) Neutrophils # (Auto) 4.1 x10^3uL (1.8-7.7) Lymphocytes # (Auto) 1.4 x10^3/uL (1.0-4.8) Monocytes # (Auto) 0.7 x10^3/uL (0.0-1.1) Eosinophils # (Auto) 0.8 x10^3/uL (0.0-0.7) Basophils # (Auto) 0.1 x10^3/uL (0.0-0.2) Prothrombin Time 11.0 SEC (9.4-11.4) Prothromb Time International Ratio 1.1 (0.9-1.1) Sodium Level 140 mmol/L (136-145) Potassium Level 4.5 mmol/L (3.5-5.1) Chloride Level 104 mmol/L (98-107) Carbon Dioxide Level 27 mmol/L (21-32) Anion Gap 9 (6-14) Blood Urea Nitrogen 19 mg/dL (8-26) Creatinine 1.5 mg/dL (0.7-1.3) Estimated GFR (Cockcroft-Gault) 44.8 BUN/Creatinine Ratio 13 (6-20) Glucose Level 147 mg/dL (70-99) Calcium Level 8.5 mg/dL (8.5-10.1) Total Bilirubin 0.6 mg/dL (0.2-1.0) Aspartate Amino Transf (AST/SGOT) 19 U/L (15-37) Alanine Aminotransferase (ALT/SGPT) 29 U/L (16-63) Alkaline Phosphatase 66 U/L (46-116) Total Protein 7.9 g/dL (6.4-8.2) Albumin 3.9 g/dL (3.4-5.0) Albumin/Globulin Ratio 1.0 (1.0-1.7) D-Dimer (Kalina) 0.26 mg/L (0.00-0.50) Creatine Kinase 89 U/L (39-308) Troponin I Quantitative < 0.017 ng/mL (0-0.055) < 0.017 ng/mL (0-0.055) EKG EKG Sinus rhythm. Nonspecific ST changes. ASSESSMENT/PLAN Assessment/Plan 1. Acute exacerbation of COPD. Possible pneumonia. Patient is feeling slightly better after starting on pulmonary medications. Would continue present treatments. Further imaging is pending. 2. History of myocardial infarction and previous bypass surgery. No chest pain. Although the EKG is abnormal and does not to be does not appear to be an acute change although we do not have old records at this time. We'll continue baseline medications as above. 3. History of heart failure. Patient may have some mild concerning factor for heart failure was probably present shortness of breath but is feeling slightly better on his present treatments. We'll attempt to obtain old records from especially regarding the patient's ejection fraction. If he is not secondary improved Friday morning with then consider checking an echo. 4. Peripheral vascular disease. No pain in his legs although the patient does have cellulitis and is being treated with antibiotics. He reportedly is followed also by vascular surgery at . 5. Hypertension. Reasonable control. Will continue present treatment with monitoring. 6. Hyperlipidemia. Continue statins. 7. Diabetes mellitus. As per the primary service. Thank you for allowing us to participate in the care of your patient. STEVE HOLT MD Jan 23, 2020 12:18
[2020-01-23 15:06] VITALS: BP 132/63
[2020-01-23 19:40] VITALS: BP 149/63
[2020-01-23] MEDS: ATORVASTATIN CALCIUM 20 MG TABLET PO SCH (20:56)
[2020-01-23] MEDS: amLODIPine BESYLATE 5 MG TABLET PO SCH (20:57)
[2020-01-24 05:23] VITALS: BP 114/43
[2020-01-24] MEDS: methylPREDNISolone SOD SUCC PF 40 MG/ML VIAL. IV SCH (05:27)
[2020-01-24] MEDS: IPRATRPIUM/ALBUTEROL 0.5/2.5MG 3 ML NEBU. NEB SCH (05:39)
--- NOTE | 2020-01-24 07:57 | PDOC ---
CARDIO Progress Notes Date & Time Date of Service DATE: 01/24/20 TIME: 07:53 Time of Evaluation 07:53 Subjective Notes breathing improved. No CP , palpitations, dizziness, diaphoresis, or nausea/vomiting Vitals Vitals Vital Signs Date Time Temp Pulse Resp B/P (MAP) Pulse Ox O2 Delivery O2 Flow Rate FiO2 01/24/20 05:39 94 Room Air 01/24/20 05:23 97.7 93 18 114/43 (66) Weight Weight [ ] Input and Output I.O. Intake and Output 01/24/20 07:00 Intake Total 1035 ml Output Total 1 ml Balance 1034 ml Intake Oral 1035 ml Output Urine Total 1 ml Physical Exams HEENT: Neck Supple W Full Motion Chest: Symmetric Lungs: Clear to Auscultation Heart: S1S2, RRR, murmurs (2/6 systolic murmur) Abdomen: Soft N/T Extremities: 2+ Dorsalis Pedis, Other (1+ RLE edema ) Neurology: alert, oriented, follow commands Assessment Assessment 1. Acute on chronic respiratory failure with AE COPD; improved 2. CAD s/p CABG; stable, CP free. MPI 06/17 without evidence of ischemia or infarct 3. Abnormal EKG; records review. No significant acute changes as compared to previous EKG 08/17/19. 4. Chronic diastolic CHF; Echo 06/17 with preserved LV systolic function as noted below. Per records, had echo at [facility] 08/19 that showed LVEF 60%. Clinically compensated 5. PVD;s/p right aorto-femoral bypass 2011 6. Hypertension; controlled 7. Hyperlipidemia; statin 8. Diabetes, II 9. CKD 10. PAFIB; maintaining SR; on Eliquis. BB for rate control 11. Mitral regurgitation; mild to moderate from recent echo at [facility]. Outpatient monitoring Recommendations Lung optimization Continue secondary prevention measures Routine echo on an outpatient basis, will defer to primary breaker boss, Dr. Yvette sanz Supportive care Follow up with Dr. Hassan upon discharge Records at : 06/02/18 - 2-D + DOPPLER ECHOCARDIOGRAM Interpretation Summary The overall LVEF is about 55%. The inferior wall is hypokinetic. The LA is moderately enlarged. Mild MR noted. 06/04/18 - Procedure: D-SPECT MULTI GATED THALLIUM REGADENOSON MPI STRESS TEST FINDINGS: Pharmacological Stress Electrocardiogram: The patient's heart rate varied from 58 to 75 bpm. The blood pressure ranged from 120/68 to 141/54. The patient experienced shortness of breath. On the resting ECG, at the initiation of monitoring, there is tachycardia observed for 9 beats, with visible P waves in the first 2 complexes before the P waves appear to be buried in the T waves. There appears to be a "ramp up" of the rate progressively before this tachycardia terminates and normal sinus rhy thm with right bundle branch block ensues. The proximal system of tachycardia appears most suggestive of an atrial tachycardia. After this event and following Regadenoson infusion, normal sinus rhythm is present throughout and there are no diagnostic ischemic ST segment changes or dysrhythmias observed. Conclusion: Pharmacologic stress ECG is negative for ischemia. Probable pa roxysmal atrial tachycardia. RODOLFO LUQUE APRN Jan 24, 2020 07:57
[2020-01-24] MEDS: AZITHROMYCIN 250 MG TABLET. PO SCH (08:53)
[2020-01-24] MEDS: LACTOBACILLUS RHAMNOSUS GG 1 CAPSULE. PO SCH (08:53)
[2020-01-24] MEDS: APIXABAN 5 MG TABLET. PO SCH (08:53)
[2020-01-24] MEDS: FUROSEMIDE 40 MG TABLET PO SCH (08:53)
[2020-01-24] MEDS: PANTOPRAZOLE 40 MG TABLET. PO SCH (08:53)
[2020-01-24] MEDS: glipiZIDE 5 MG TABLET PO SCH (08:54)
[2020-01-24] MEDS: CILOSTAZOL 50 MG TABLET. PO SCH (08:54)
[2020-01-24] MEDS: ASPIRIN 81 MG TAB.CHEW PO SCH ×2 (08:54→09:00)
[2020-01-24] MEDS: FERROUS SULFATE 325 MG TABLET. PO SCH (08:54)
[2020-01-24 09:00] VITALS: BP 134/62
[2020-01-24] MEDS: CARVEDILOL 12.5 MG TABLET PO SCH (09:00)
[2020-01-24] MEDS: TRIAMCINOLONE ACETONIDE 0.5% TOPICAL CREAM 15GM TUBE. TP PRN (09:03)
[2020-01-24] MEDS: INSULIN LISPRO 300 UNITS/3 ML VIAL. SQ SCH (09:13)
[2020-01-24] MEDS ORDERED: CARV25TA2 PO (10:00)
[2020-01-24] MEDS ORDERED: PRED5TAB PO (10:00)
[2020-01-24] MEDS ORDERED: TRIA15CR50 TP (10:00)
[2020-01-24] MEDS ORDERED: AZIT250T6 PO (10:00)
[2020-01-24] MEDS ORDERED: IPRA3AMP29 NEB (10:00)
[2020-01-24] MEDS ORDERED: CEFP200T PO (10:00)
--- NOTE | 2020-01-24 10:03 | DISCH ---
HOME HEALTH DISCHARGE/MEDS DISCHARGE INFORMATION: Discharge Date: Jan 24, 2020 Final Diagnosis: COPD exacerbation/ cellulitis/ Condition on Discharge: Stable CODE STATUS: Code Status: Full HOME HEALTH: Face to Face: I certify this patient is under my care and that I, or a nurse practitioner or physician's railway yard assistant working with me, had a face to face encounter that meets the physician face to face encounter requirements with this patient on [Date]. Medical Condition(s): COPD, Other (cellulitis) Physical Therapy For: Evalulation/Treatment Occupational Therapy For: Evaluation/Treatment Homebound Status Met By: Unsteady balance w/ amb, POST DISCHARGE ORDERS: Activity Instructions for Disc: No restrictions Weight Bearing Status after Di: No restrictions DIET AFTER DISCHARGE: ADA CHECKS AFTER DISCHARGE: Checks after discharge: Check blood sugar, ac/hs CERTIFICATION STATEMENT: Certification Statement: Based on the above finding, I certify that this patient is confined to the home and needs intermittent fdc care, physical therapy and/or speech therapy, or continues to need occupational therapy.~ This patient is under my care, and I have initiated the establishment of the plan of care.~ This patient will be followed by myself or a community physician who will periodically review the plan of care. DISCHARGE MEDICATIONS: Home Meds Reported Medications Lipase/Protease/Amylase (BRIAN VEGA 3,000 UNITS CAPSULE) 1 Each Capsule., 1 EACH PO TID for LIVER, CAP 01/21/20 Triamcinolone Acetonide (TRIAMCINOLONE ACETONIDE) 15 Gm Cream..g., 1 BILLIE TP PRN BID PRN for ITCHING, #30 GM 01/21/20 Glipizide (GLIPIZIDE) 5 Mg Tablet, 1 TAB PO BID for DIABETES, #60 TAB 3 Refills 01/21/20 Furosemide (FUROSEMIDE) 40 Mg Tablet, 1 TAB PO DAILY for CHF, #30 TAB 5 Refills 01/21/20 Diclofenac Sodium (DICLOFENAC SODIUM) 100 Gm Gel..gram., 100 GM TP PRN QID PRN for PAIN, EACH 01/21/20 Apixaban (ELIQUIS) 5 Mg Tablet, 5 MG PO BID for BLOOD CLOT, TAB 01/21/20 Magnesium Chloride (MAG64) 64 Mg Tablet.er, 64 MG PO, TAB.SR 08/12/18 Potassium Chloride (POTASSIUM CHLORIDE ) 20 Meq Tablet.er, 20 MEQ PO QODAY, TAB 9/11/18 Pantoprazole Sodium (PANTOPRAZOLE SODIUM) 40 Mg Tablet.dr, 0.5 TAB PO DAILY, #30 TAB 3 Refills 08/11/18 Carvedilol (COREG ) 6.25 Mg Tablet, 1 TAB PO BID, #180 TAB 1 Refill 08/11/18 Cilostazol (CILOSTAZOL) 100 Mg Tablet, 1 TAB PO BID, #60 TAB 5 Refills 08/11/18 Ergocalciferol (Vitamin D2) (VITAMIN D2) 50,000 Unit Capsule, 1 CAP PO QMTH, % 08/11/18 Atorvastatin Calcium (ATORVASTATIN CALCIUM) 80 Mg Tablet, 1 TAB PO DAILY, #30 TAB 5 Refills 08/11/18 Ferrous Sulfate (FERROUS SULFATE) 325 Mg Tablet, 1 TAB PO DAILY for anemia, #30 TAB 3 Refills 08/11/18 Amlodipine Besylate (AMLODIPINE BESYLATE) 5 Mg Tablet, 1 TAB PO HS for bp, #30 TAB 5 Refills 08/11/18 Aspirin (ASPIRIN) 81 Mg Tab.chew, 81 MG PO DAILY for heart health, TAB 08/11/18 Discontinued Reported Medications Carvedilol (COREG ) 6.25 Mg Tablet, 1 TAB PO BID, #180 TAB 1 Refill 08/12/18 Metformin Hcl (METFORMIN HCL) 1,000 Mg Tablet, 1 TAB PO QHS, #60 TAB 5 Refills 08/11/18 Furosemide (FUROSEMIDE) 20 Mg Tablet, 1 TAB PO DAILY, #90 TAB 1 Refill 08/11/18 ISABELLA ALCALA MD Jan 24, 2020 10:03
[2020-01-24] MEDS ORDERED: CHOLECALCIFEROL (VITAMIN D3) 50,000 UNIT CAPSULE PO SCH (16:00)
== END 2020-01-24 11:02 | disposition home health service (06) | DRG 177 ==
LOC: 1 SOUTH 12:26
PROVIDERS: ADMIT Family Medicine; ATTEND Family Medicine
DX: J15.6 Pneumonia due to other Gram-negative bacteria (principal); J96.20 Acute and chronic respiratory failure, unspecified whether with hypoxia or hypercapnia; L03.115 Cellulitis of right lower limb; I50.32 Chronic diastolic (congestive) heart failure; I13.0 Hypertensive heart and chronic kidney disease with heart failure and stage 1 through stage 4 chronic kidney disease, or unspecified chronic kidney disease; I47.1 Supraventricular tachycardia; J15.9 Unspecified bacterial pneumonia; J43.2 Centrilobular emphysema; E11.22 Type 2 diabetes mellitus with diabetic chronic kidney disease; E11.51 Type 2 diabetes mellitus with diabetic peripheral angiopathy without gangrene; E78.5 Hyperlipidemia, unspecified; I25.10 Atherosclerotic heart disease of native coronary artery without angina pectoris; I25.2 Old myocardial infarction; N18.9 Chronic kidney disease, unspecified; Z82.49 Family history of ischemic heart disease and other diseases of the circulatory system; Z95.1 Presence of aortocoronary bypass graft; Z88.2 Allergy status to sulfonamides; Z88.8 Allergy status to other drugs, medicaments and biological substances; J20.8 Acute bronchitis due to other specified organisms; E11.65 Type 2 diabetes mellitus with hyperglycemia; K21.9 Gastro-esophageal reflux disease without esophagitis
CPT/HCPCS: 36415; 71046; 71250; 80053; 82550; 82947; 83735; 84484; 85025; 85379; 85610; 93005; 93971; 94618; 94640; J0456; J0696; J1815; J2920; J7620; 97110